=== PATIENT | male | born 1990 | race Caucasian/White ===

== ENCOUNTER 2019-03-26 11:58 | Day surgery (SDC) | payer BC ==
[2019-03-26] MEDS ORDERED: PROPOFOL 10 MG/ML VIAL IV ONE (11:59)
[2019-03-26] MEDS ORDERED: EPINEPHRINE HCL 0.1 MG/ML 10ML SYR IVP ONE (11:59)
[2019-03-26] MEDS ORDERED: LIDOCAINE 2% MDV (20MG/ML) 20ML VIAL IV ONE (11:59)
--- NOTE | 2019-03-29 08:20 | Operative Note ---
OPERATION: COLONOSCOPY with epi injection and hemoclip application and rectal polypectomy. PREOPERATIVE DIAGNOSIS: Hematochezia. POSTOPERATIVE DIAGNOSIS: Large pedunculated distal rectal polyp. PROCEDURE: After informed consent was obtained from the patient, he was placed in the left lateral decubitus position in the endoscopy suite, sedated and monitored by the department of anesthesia. Digital rectal exam revealed a palpable polypoid abnormality in the distal rectum. A well-lubricated [id number] colonoscope was inserted into the rectum, and immediate visualization of the large pedunculated polyp was noted in the distal rectum. J-turn views were performed initially to inspect this area which again confirmed a distal rectal polyp. The endoscope was straightened and advanced to the cecum. Preparation quality was good. The cecum, cecal bulb, ileocecal valve, appendiceal orifice, ascending colon, transverse colon, descending colon, and sigmoid colon were unremarkable. In the rectum, the large polyp was seen in both forward and J-turn views. No other abnormalities identified. The stalk of the polyp was injected with 2 mL of 1:10,000 epinephrine prior to attempting polypectomy. At this point, a polypectomy was performed with ERBE EndoCut current. There was a small amount of bleeding that ensued which had some arterial qualities. The area was subsequently hemoclipped x2 with cessation of flow of any blood whatsoever. The area was rinsed. No persistent bleeding was noted but given the bleeding, an additional 1.5 mL of 1:10,000 epinephrine was subsequently injected. Again no bleeding persisted. The area was re-irrigated. Clips were in place. The rectal ampulla was deflated, and the endoscope was removed. RECOMMENDATIONS: The patient should follow a soft low-fiber diet and use MiraLax daily for the next 2 weeks to maintain soft stools. He should avoid heavy lifting for the next week and avoid aspirin and nonsteroidal products for the next 2 weeks. If any recurrent bleeding ensues, he should notify me immediately. He will require repeat exam in 1-3 years pending tissue histology. As always, thank you for allowing me to participate in the healthcare of your patients. ANDREW
== END 2019-03-26 14:10 | disposition home or self-care (01) ==
LOC: HOP 11:58
PROVIDERS: ATTEND Internal Medicine Gastroenterology
DX: D12.8 Benign neoplasm of rectum (principal)